=== PATIENT | male | born 1935 | race Caucasian/White ===

== ENCOUNTER 2017-03-23 08:29 | Emergency (ER) | payer MEDICARE ==
[2017-03-23] VITALS (14 sets, daily range): BP systolic 94–119; BP diastolic 52–68; PULSE 86–102; RESP 15–21; O2SAT 96–100
[~2017-03-23] VITALS: Ht 160 cm; Wt 79.5 kg
[~2017-03-23 08:29] MED LIST: ALBU17AE22 INH; ASA325 PO; ATEN50TA7 PO; ATRINH IH; HCTZ1TAB PO; LEVO750T9 PO; LISI20TA PO; LOVA40TA PO; OMEP20TA86 PO; QVAR80 INH; TRIA115C TP; [UNRECOGNIZED DRUG - CODE] PO; [UNRECOGNIZED DRUG - CODE] PR
[2017-03-23] MEDS ORDERED: 0.9% Sodium Chloride 1,000 ML IV ONE ×2 (08:41→10:05)
[2017-03-23 08:58] LABS: BASOPHILS % (AUTO) 0.9 % (0-3); EOSINOPHILS % (AUTO) 0.8 % (0-5); MONOCYTES % (AUTO) 7.6 % (4-12); Mean Corpuscular Hemoglobin 26.2 pg (27.0-35.0); Mean Corpuscular Volume 85.9 fL (81-100); NEUTROPHILS % (AUTO) 75.3 % (40-74); Platelet Count 349 bil/L (150-400)
[2017-03-23 09:12] LABS: TROPONIN T 0.023 ug/L (0.0-0.011)
--- NOTE | 2017-03-23 09:13 | ED.REPORT ---
HPI-General Illness Date of Service Mar 23, 2017 ED Provider: Adeline Nichols MD Patient is an 81 year old male with an AAA who presents to the ED via EMS complaining of weakness onset last night. He was found by medics unable to bear weight and very pale. He had a witnessed episode of hematemesis and continues to have hemoptysis. His only complaint is L hip pain. He denies nausea, back pain, or any other symptoms. He does not recall when his last BM was. He is scheduled for an endovascular AAA repair in [place] in 2 days. He is not on Coumadin. Nursing Notes Stated Complaint: WEAKNESS Chief Complaint: General Complaint Nursing Notes Reviewed: Yes Allergies: Coded Allergies: morphine (Verified Allergy, Unknown, VOMITING, 05/27/13) Uncoded Allergies: Dust mite (Allergy, Intermediate, Cough and sneeze, 05/27/13) Scheduled Albuterol-Expunged Drug, Do Not Renew! (Albuterol-Expunged Drug, Do Not Renew!) 8.5 Gm Aero 8.5 GM INH Q3-4HP Aspirin-Expunged Drug, Do Not Renew! (Aspirin-Expunged Drug, Do Not Renew!) 325 Mg Tablet 325 MG PO DAILY Atenolol-Expunged Drug, Do Not Renew! (Atenolol-Expunged Drug, Do Not Renew!) 50 Mg Tablet 50 MG PO DAILY Beclomethasone-Expunged Drug, Do Not Renew! (Iebi-86-Mlhswkbs Drug, Do Not Renew !) 80 Mcg Puff 7.3 INH BID Fexofenadine-Expunged Drug, Do Not Renew! (Fexofenadine-Expunged Drug, Do Not Renew!) 180 Mg Tablet 180 MG PO DAILY Hctz/Spirono-Expunged Drug, Do Not Renew! (Aldactazide 25/25-Expunged Drug, Do Not Renew) 1 Tab Tablet 1 TAB PO DAILY 1/2 tab daily Hydrocortisone (Anusol-Hc Cream) 2 Applic/Gm Cr 60 APPLIC MD PRN Ipratropium-Expunged Drug, Do Not Renew! (Ipratropium-Expunged Drug, Do Not Renew!) 200 Puff/12.9 Gm Inhaler 12.9 GM IH PRN 0.06% 2 sprays each nostril Q8hr PRN Levofloxacin-Expunged Drug, Do Not Renew! (Levaquin-Expunged Drug, Do Not Renew! ) 750 Mg Tablet 750 MG PO DAILY Take by mouth daily for three days then stop Lisinopril-Expunged Drug, Do Not Renew! (Lisinopril-Expunged Drug, Do Not Renew! ) 20 Mg Tablet 20 MG PO DAILY Lovastatin-Expunged Drug, Do Not Renew! (Lovastatin-Expunged Drug, Do Not Renew! ) 40 Mg Tablet 40 MG PO HS Omeprazole-Expunged Drug, Do Not Renew! (Omeprazole-Expunged Drug, Do Not Renew! ) 20 Mg Tablet.dr 20 MG PO DAILY Triamcinolone/Emollient Cmb#45 (Pediaderm Ta 0.1% Kit) 115 Gm Cream..g. 115 GM TP PRN General Time Seen by MD: 08:31 Chief Complaint Weakness Hx Obtained From: Patient, EMS Arrived By: Ambulance Sudden in Onset?: Yes Onset Occurred: Yesterday Symptom Duration: Since onset Recent Healthcare: Recent doctor visit Past Medical History Past Medical History Notes: Seen at January 2017 for cough, given Zpack. Past Medical History ankylosing spondylitis Reports: Hypertension, Stroke Reports: Diverticulitis Past Surgical History Hip and Shoulder replacement Smoking History Former Smoker Social History Lives with brother Review of Systems +hemoptysis Full Review of Systems Constitutional: Reports: Weakness - generalized GI: Reports: Hematemesis, Vomiting, Denies: Nausea Musculoskeletal: Reports: Joint pain (L hip), Denies: Back pain Complete sys rev & neg: except as marked. Physical Exam Vital Signs Vital Signs Date Time Temp Pulse Resp B/P Pulse Ox O2 Delivery O2 Flow Rate FiO2 03/23/17 12:15 37.1 93 18 102/62 97 Nasal Cannula 2 03/23/17 11:30 93 18 102/62 97 Nasal Cannula 2 03/23/17 11:25 37.1 92 18 03/23/17 11:15 96 20 110/57 96 Nasal Cannula 2 03/23/17 11:15 37.1 92 18 03/23/17 11:00 96 19 116/63 97 Nasal Cannula 2 03/23/17 10:45 86 20 99/60 97 Nasal Cannula 2 03/23/17 10:30 88 19 103/56 98 Nasal Cannula 2 03/23/17 10:15 92 19 102/68 99 Nasal Cannula 2 03/23/17 10:00 94 19 103/61 99 Nasal Cannula 2 03/23/17 09:45 98 20 94/59 99 Nasal Cannula 2 03/23/17 09:30 102 21 105/65 100 Nasal Cannula 2 03/23/17 09:15 98 20 107/52 100 Nasal Cannula 2 03/23/17 09:12 36.4 97 20 03/23/17 09:12 36.6 96 18 03/23/17 08:36 35.9 95 15 119/55 100 Room Air Initial VS: Reviewed Head / Eyes: Atraumatic, Normocephalic Skin: Warm, Dry Neurologic: Alert, Oriented, Nonfocal Psychiatric: Mood/affect normal, Behavior normal, Normal thought content General/Constitutional: Awake, Alert, Cooperative Appearance / Presentation: Positive: Pale Answering questions Globally weak ENT: Airway patent some pink hemoptysis Respiratory / Chest: Breath sounds NL, Breath sounds = bilat, No respiratory distress Speaking in full sentences Heart Rate / Rhythm: Positive: Tachycardia Abdomen: Non-tender Mild Distention Bedside US shows 5.4cm abdominal aneurysm but no free fluid Rectum / Perineum: Atraumatic Dark maroon stool, guaiac positive Interpretation & Diagnostics Lab Results Interpretation Result Diagram: 03/23/17 1014 03/23/17 0841 Test 03/23/17 08:00 03/23/17 08:12 03/23/17 08:35 03/23/17 08:41 Lactic Acid Level 4.5mmol/L (0.4-2.0) Prothrombin Time 11.3sec (8.1-12.5) Prothromb Time International Ratio 1.05ratio Activated Partial Thromboplast Time 26.6sec (22.8-33.0) White Blood Count 16.0th/mm3 (3.8-10.1) Red Blood Count 2.56mil/mm3 (4.40-5.80) Mean Corpuscular Volume 85.9fL (81-100) Mean Corpuscular Hemoglobin 26.2pg (27.0-35.0) Mean Corpuscular Hemoglobin Concent 30.5% (32.0-37.0) Red Cell Distribution Width 20.8% (12.3-15.4) Platelet Count 349bil/L (150-400) Neutrophils (%) (Auto) 75.3% (40-74) Lymphocytes (%) (Auto) 15.0% (14-46) Monocytes (%) (Auto) 7.6% (4-12) Eosinophils (%) (Auto) 0.8% (0-5) Basophils (%) (Auto) 0.9% (0-3) Sodium Level 137mEq/L (134-144) Potassium Level 4.0mEq/L (3.5-5.2) Chloride Level 96mEq/L (97-108) Carbon Dioxide Level 21mmol/L (18-29) Blood Urea Nitrogen 61mg/dL (8-27) Creatinine 1.34mg/dL (0.76-1.27) Estimat Glomerular Filtration Rate 54mL/min (>59) Glucose Level 243mg/dL (60-99) Calcium Level 8.9mg/dL (8.5-10.1) Magnesium Level 2.4mg/dL (1.6-2.6) Total Bilirubin 0.2mg/dL (0.0-1.2) Aspartate Amino Transf (AST/SGOT) 11U/L (0-50) Alanine Aminotransferase (ALT/SGPT) 6U/L (0-44) Alkaline Phosphatase 90U/L (25-160) Troponin T 0.023ug/L (0.0-0.011) Pro-B-Type Natriuretic Peptide 1429pg/mL (0-486) Total Protein 6.5g/dL (6.4-8.4) Albumin 3.5g/dL (3.4-5.0) Test 03/23/17 10:14 Hemoglobin 7.4g/dL (13.8-17.2) Hematocrit 23.3% (41.0-50.0) ECG Interpretation ECG Interpretation: Sinus tachy rate 96 multiple PVC's diffuse ischemia Time: 09:11 Interpreted by: ED physician X-Ray Chest Interpretation Chest Xray Interpretation: IMPRESSION: 1. Right apical and bilateral areas of peripheral scarring unchanged no definite acute cardiopulmonary process. 2. Descending thoracic aortic dilatation. Dictated by: Ramiro FLEMING Interpreted: Gerry Aleman MD on 03/23/2017 at 9:14 Transcribed by: OLESYA on 03/23/2017 at 9:20 Approved by: Elvis Aleman M.D. on 03/23/2017 at 10:35 Physician wet read: wide mediastinum of chest question of pulmonary edema View: Portable, 1 view Interpretation / Wet Read by: Interpret - Radiologist CT Chest Interpretation CT chest/abd/pelvis: IMPRESSION: 1. No evidence of aortic dissection or mediastinal hematoma. 2. Aneurysmal dilatation of the thoracic and abdominal aorta are redemonstrated, similar in size compared to the prior study but progressively enlarged compared to older exams. 3. Multiple small pulmonary nodules as described including an 8mm right middle lobe nodule which appears progressively enlarged compared to prior studies. Recommend short-term interval followup in 6 months to assess for stability if clinically indicated. 4. Multiple additional small indistinct nodules in the right lung base are new compared to older exams and may be infectious or inflammatory. Recommend attention on followup. Dictated by: Som Prabhakar M.D. on 03/23/2017 at 9:06 Approved by: Som Prabhakar M.D. on 03/23/2017 at 9:[address] with radiologist. Lots of artifact present but no disection or leaking aneurysm Study type: CT pulm angiogram Interpretation / Wet Read by: Interpret - Radiologist, Discussed w radiologist Re-Eval/Medical Decision Med Decision/Clinical Course 81-year-old gentleman with known AAA scheduled for endovascular repair in 2 days presents with greater than 12 hours of extraordinary weakness to the point where he is not able to get out of bed. On initial exam he is extraordinarily pale diaphoretic is awake alert and able to speak in full sentences initial blood pressure is 150 systolic. Vascular access includes 2 peripheral 16-gauge IVs Bedside ultrasound does show a large abdominal aneurysm no obvious free fluid significant amount of plaquing in the vessel alarcon so it is difficult to tell if there may be a small tear or leak. Stat CT angiogram is ordered. Fluid resusitation is started Once his return from CT his blood pressure begins to drop. Gets as low as 90 systolic. EKG shows significant global ischemia so 2 units of uncrossed matched blood are given. This does improve his color and the dyspnea that he been experiencing. Rectal exam reveals significant melanotic stool. He has never had GI issues that he is aware of has not ever had GI bleeding and did not notice that his stools have changed recently. He does not describe significant ibuprofen or aspirin use he is not on anticoagulants. Additional labs returned. His hemoglobin is half a comparison from 2 years previously. After the first 2 units of blood his blood pressure systolic is as high as 120 and then continues to fall. Hemoglobin has gone from 6.7-7.4 with 2 units. An additional 2 units are infusing. Blood pressure has drifted back down to the 100 systolic range. He remains alert and appropriate through his ER stay. As he continues to have dropping blood pressures as we continue our aggressive fluid and blood resuscitation my presumption is that he is continuing to bleed and I expect that he will be transfused likely greater than 6-8 units with this today. In light of this FFP is also infused after his fourth unit of blood. Due to bed availability, he will be transferred to [facility] intensive care unit. Spoken with the drupal developer as well as the GI doctor. His cardiovascular surgeons are also at [facility] and can certainly be involved in his care as needed. At time of transport blood pressure at the end of 4 units is back down to 100 systolic 2 additional units of blood are given to be transfused in route. He still has not had a bowel movement. Continues to have some "pink sputum" that probably is more gastrointestinal rather than pulmonary Remains in critical condition, aggressive fluid and blood resuscitation continue. His lactic acid is elevated I suspect that this is due to hypoperfusion due to significant anemia however in the setting of possible sepsis with an elevated white count strongly suspected upper GI bleed he is also given ceftriaxone. Time of Eval: 09:02 Re-Evaluation/Progress Note: Rechecked patient. He reports feeling fatigued Time of Eval: 09:07 Re-Evaluation/Progress Note: Rechecked pt. Will begin transfusion. Time of Eval: 10:52 Patient Status: Condition improved Re-Evaluation/Progress Note: Rechecked patient. His color is better and dyspnea has resolved. His diastolic BP was as low as 90 and is now 130 while lying flat. Informed patient if transfer to [facility]. Patient understands and agrees with plan. All questions addressed at this time. Time of Eval: 11:28 Re-Evaluation/Progress Note: His pressure is down from 130 to 110. His third unit is going in and the 4th is being prepared. He is feeling better and is not in pain. The ambulance for transport has been called. Consultation #1: Call Returned at: 10:48 Silver Cleaner: Will see patient, Agrees with eval, Agrees with plan, Accepts admit Note: Discussed pt case with Dr. Barney. Accepts admit. GI will call. Consultation #2: Call Returned at: 11:22 Silver Cleaner: Will see patient, Agrees with eval, Agrees with plan Note: Discussed pt case with Dr. Erickson from at [facility]. Counseled Regarding: Diagnosis, Lab results, Need for transfer Discharge & Departure Primary Impression: GI bleed GI bleed type/associated pathology: unspecified gastrointestinal hemorrhage type Qualified Code: K92.2 - Gastrointestinal hemorrhage, unspecified Additional Impressions: Hypovolemic shock AAA (abdominal aortic aneurysm) without rupture Ascending aortic aneurysm Cardiac ischemia Leukocytosis Anemia due to acute blood loss Disposition: Transfer, Acute Care Facility Receiving Hospital: [facility] Transfer Accepted: Yes Transfer Accepted at: 10:48 Transfer Reason: Higher level of care Spoke with: Attending physician Patient Status: Stable Patient Informed: Yes Discharge Condition All VS Reviewed: Yes Condition: Stable Referrals: Maddie Dietrich MD (PCP) Crit Care Except Billable Proc Time Spent: 75-104 minutes Services Performed: Patient management by me, Time spent at bedside, Reviewing test results, Reviewing imaging, Discussing patient care, Documentation in record Scribe Attestation Portions of this note were transcribed by Yrn Arango. I, Dr. Nichols personally performed the history, physical exam and medical decision-making; I reviewed and confirmed the accuracy of the information in the transcribed note. Signed by: Yrn Arango 03/23/17, 1129 copies to: Maddie Dietrich MD, Shawna L MD Mar 23, 2017 09:13 YRN ARANGO Mar 23, 2017 09:24
[2017-03-23] MEDS ORDERED: Pantoprazole 4 mg/mL 10 mL Inj IVPUSH ONE (09:20)
[2017-03-23] MEDS ORDERED: Pantoprazole Inj 80 MG, Pharmacy To Mix 1 EA in 0.9% Sodium Chloride 80 ML IV ONE ×2 (09:20)
--- NOTE | 2017-03-23 09:21 | DRSVH ---
PROCEDURE: X-RAY CHEST ONE VIEW, PORTABLE ([id number]) INDICATIONS: WEAKNESS TECHNIQUE: One view of the chest was acquired. COMPARISON: [facility], CR, XR CHEST 2VW, 03/10/2017, 18:03. [facility], CR, CHEST 1VW (PORTABLE), 11/23/2011, 1:07. FINDINGS: Surgical changes and devices: Right shoulder arthroplasty incompletely visualized. Lungs and pleura: Right apical scarring unchanged as well as areas of scarring involving both lungs p eripherally. No focal consolidation, pleural effusion or pneumothorax. Mediastinum: Pacing the aorta is dilated and not significantly changed. Heart size is mildly enlarge d. Bones and chest wall: No suspicious bony abnormalities. Soft tissues appear unremarkable. Severe l eft shoulder arthropathy present with complete rotator cuff tear. IMPRESSION: 1. Right apical and bilateral areas of peripheral scarring unchanged no definite acute cardiopulmonar y process. 2. Descending thoracic aortic dilatation. Dictated by: Ramiro Agudelo Abbi Interpreted: Gerry Aleman MD on 03/23/2017 at 9:14 Transcribed by: OLESYA on 03/23/2017 at 9:20 Approved by: Elvis Aleman M.D. on 03/23/2017 at 10:35
[2017-03-23 09:23] LABS: Magnesium 2.4 mg/dL (1.6-2.6)
[2017-03-23 09:26] LABS: INR 1.05 ratio
--- NOTE | 2017-03-23 09:54 | DRSVH ---
PROCEDURE: CT ANG CHEST/ABD/PEL W/WO CIBTRAST ([id number]) INDICATIONS: wide mediastinum on chest xray, large AAA TECHNIQUE: Precontrast 5 mm thick sections acquired from the lung apices to the iliac crests. After the adminis tration of intravenous contrast, 3 mm thick sections again acquired from the lung apices to the iliac crests. 3-dimensional maximum intensity projection (MIP) oblique sagittal and coronal reformats wer e then acquired, and/or 3-dimensional volume rendering reformats. For radiation dose reduction, the following was used: automated exposure control. COMPARISON: [facility], CT, CHEST/ABD W/CON (PNL), 12/22/2014, 11:38. [facility], CT, CHEST/ABD W/CON (PNL), 11/29/2012, 12:23. [facility], CT, CT ANGIO CHEST ABD, , 18:40. [facility], CR, XR CHEST 1VW (PORTABLE), 03/23/2017, 8:26. FINDINGS: Image quality: There is metallic streak artifact from patient's right hip and right shoulder prosthes es. AORTA: Noncontrast images demonstrate no evidence of intramural hematoma. There is aneurysmal dilat ation of the aorta redemonstrated. The aortic root measures approximately 4.6 cm, similar in size to the prior study, with evaluation limited in the absence of cardiac gating. At the sinotubular junct ion, the aorta measures 4.0 cm. The ascending aorta measures up to 4.4 cm, unchanged from recent carlos or study. The proximal aortic arch measures 3.7 cm at the level of the right brachiocephalic artery origin, stable from the prior study. The distal aortic arch again demonstrates focal narrowing measu ring approximately 2.8 cm with a subsequent proximal ascending aorta measuring up to 3.9 cm. The mid descending thoracic aorta is normal in caliber measuring up to 2.9 cm. At the level of the diaphrag matic hiatus, the aorta is borderline enlarged measuring up to 3.1 cm. The suprarenal abdominal aort a is normal in caliber, measuring approximately 2.5 cm. There is an infrarenal fusiform aneurysm of abdominal aorta redemonstrated measuring up to 5.3 cm in anteroposterior dimension by 5.9 cm in trans verse dimension. This involves a segment of approximately 8 cm in length. The findings are unchange d from the recent study but progressively enlarged compared to older exams. No intimal flaps to sugg est aortic dissection. No periaortic hematomas. The great-vessels demonstrates conventional branching with a three-vessel arch. The visualized great vessels are patent and normal in caliber. The iliac arteries are normal in caliber. There is ather osclerotic vascular calcification and noncalcified plaque throughout the aorta. Peripheral thrombus is also redemonstrated within the aneurysm sac. CHEST: Lungs and pleura: There is chronic consolidation redemonstrated within the left apex compatible with scarring. There is also milder scarring in the right apex. There are a few scattered pulmonary nodu les redemonstrated including a nodule measuring up to 8 mm on series 7 image 45 which appears progres sively increased compared to older studies. There are a few scattered subpleural nodules in the lung bases most prominent within the right lower lobe including on series 7 image 61 measuring 4 mm and s cattered enhancing nodules on image 53 is also on image 49. These appear similar to the recent prior study but new compared to older exams and may be infectious or inflammatory in etiology. There is a n ovoid nodule within the right major fissure measuring up to 11 mm on image 41 which appears unchang ed. There is a small subpleural nodule in the right lower lobe measuring up to 4 mm on image 41 whic h appears unchanged. No pleural effusions or pneumothorax. Central and peripheral airways are paten t and normal in caliber. Mediastinum: Heart size is at the upper limits of normal. No pericardial effusion. No mediastinal or hilar adenopathy by size criteria. Central pulmonary arteries are normal in size. Esophagus is n ormal in caliber. No hiatal hernias. Bones and chest wall: No axillary adenopathy by size criteria. No suspicious bony lesions. No grecia tebral body compression fractures. ABDOMEN: Vasculature: Celiac trunk and mesenteric arteries are patent. Renal arteries are also patent. Solid organs: Liver and spleen are normal in size. Gallbladder appears within normal limits calcifi ed gallstones. Biliary system is non dilated. Pancreas enhances normally. No adrenal nodules. The re are multiple bilateral renal cysts including a large parapelvic cysts in the left kidney. There i s a small amount of stone within the right kidney measuring approximately 3 mm. Peritoneum and bowel: No free fluid or air. Visualized bowel loops are normal in caliber and wall t hickness. There is colonic diverticulosis without acute diverticulitis. Nodes and vessels: No retroperitoneal or mesenteric adenopathy by size criteria. Inferior vena cava is normal in morphology. Bones: No suspicious bony lesions. No vertebral body compression fractures. Miscellaneous: No ventral hernias. IMPRESSION: 1. No evidence of aortic dissection or mediastinal hematoma. 2. Aneurysmal dilatation of the thoracic and abdominal aorta are redemonstrated, similar in size com pared to the prior study but progressively enlarged compared to older exams. 3. Multiple small pulmonary nodules as described including an 8mm right middle lobe nodule which deborah ears progressively enlarged compared to prior studies. Recommend short-term interval followup in 6 m [facility] to assess for stability if clinically indicated. 4. Multiple additional small indistinct nodules in the right lung base are new compared to older exa ms and may be infectious or inflammatory. Recommend attention on followup. Dictated by: Som Prabhakar M.D. on 03/23/2017 at 9:06 Approved by: Som Prabhakar M.D. on 03/23/2017 at 9:52
== END 2017-03-23 12:19 | disposition short-term general hospital (02) ==
LOC: SED 08:29
DX: K92.2 Gastrointestinal hemorrhage, unspecified (principal); R57.1 Hypovolemic shock; I71.4 Abdominal aortic aneurysm, without rupture; I25.9 Chronic ischemic heart disease, unspecified; D62 Acute posthemorrhagic anemia; D72.829 Elevated white blood cell count, unspecified; Z79.82 Long term (current) use of aspirin; I10 Essential (primary) hypertension; Z86.73 Personal history of transient ischemic attack (TIA), and cerebral infarction without residual deficits; Z79.2 Long term (current) use of antibiotics; Z88.5 Allergy status to narcotic agent
CPT/HCPCS: 36415; 36430; 71010; 71275; 74174; 80053; 83605; 83735; 83880; 84484; 85014; 85018; 85025; 85610; 85730; 86850; 86922; 86927; 87040; 93005; 96361; 96374; 99291; 99292; J7030; P9021; Q9967